=== PATIENT | male | born 1955 | race Two or more races ===

== ENCOUNTER → 2020-02-13 | Outpatient (CLI) | payer OTHER ==
[~2020-02-13] VITALS: Ht 167.6 cm; Wt 55.3 kg
[~2020-02-13] MED LIST: ASCO1TAB27 PO; BACL10TA PO; CRAN500C2 PO; GABA400C11 PO; HYDR50TA32 PO; NIF10C PO; SENN1TAB14 PO; TRAM-297 PO; TRAZ100T3 PO
== END | disposition home or self-care (01) ==
LOC: SUR 16:42 → EDSTATUS 03-04 12:15
PROVIDERS: ATTEND Urology
DX: N35.919 Unspecified urethral stricture, male, unspecified site (principal); Z20.828 Contact with and (suspected) exposure to other viral communicable diseases; Z98.890 Other specified postprocedural states; Z79.899 Other long term (current) drug therapy; Z90.49 Acquired absence of other specified parts of digestive tract

== ENCOUNTER → 2021-02-17 | Day surgery (SDC) | payer OTHER ==
[~2021-02-17] VITALS: Ht 167.6 cm; Wt 56.7 kg
[~2021-02-17] MED LIST changes: -BACL10TA PO; +BACL20TA PO; +DexAMETHasone SOD PHOS 10MG/1ML VIAL INJ ONE; +HYDROmorphone HCL 2 MG/ML VL IV PRN; +LABETALOL HCL 5 MG/ML 4ML SYRINGE IV PRN; +MEPERIDINE HCL (25 MG/ML) 1ML VIAL ONE; +MID10T PO; +MIDAZOLAM HCL 2MG/2ML 2ml VIAL (1mg/ml) IV PRN; +MIDAZOLAM HCL 2MG/2ML 2ml VIAL (1mg/ml) ONE; +MORPHINE SULFATE 4 MG/ML SYR/VIAL IV PRN; +ONDANSETRON HCL 4 MG/2 ML VIAL IV PRN; +PROPOFOL 10 MG/ML 20 ML IV ONE; +ceFAZolin 1GM/50ML 50 ML IV ONE; +ePHEDrine SULFATE 50 MG/ML AMP IV PRN; +fentaNYL CITRATE 100 MCG/2 ML VL ONE
[2021-02-17 14:10] VITALS: BP 110/66
== END | disposition home or self-care (01) ==
LOC: SUR 10:19
PROVIDERS: ATTEND Urology
DX: N35.919 Unspecified urethral stricture, male, unspecified site (principal); N40.1 Benign prostatic hyperplasia with lower urinary tract symptoms; I95.9 Hypotension, unspecified; Z20.822 Contact with and (suspected) exposure to COVID-19; Z98.41 Cataract extraction status, right eye; Z98.42 Cataract extraction status, left eye; Z90.49 Acquired absence of other specified parts of digestive tract; Z98.890 Other specified postprocedural states; Z79.899 Other long term (current) drug therapy
CPT/HCPCS: 52281; J0690; J1100; J2175; J2250; J2704; J3010; U0003